=== PATIENT | female | born 1995 | race Hispanic/Latino ===

== ENCOUNTER 2019-02-02 06:56 | Emergency (ER) | payer BC ==
[2019-02-02 07:01] VITALS: BP 136/98; PULSE 72; TEMP 98; O2SAT 98
[2019-02-02 07:25] VITALS: RESP 16
--- NOTE | 2019-02-02 07:36 | ED PDOC ---
HPI: Eye Injury/Pain Additional History Per: Patient Additional Complaint(s): This is 23 y/o F with PMH of seasonal and dog allergy comes to the ER c/o one day hx of right eye allergic reaction, swelling, pain and redness. As per patient this symptoms started last night after her dog licked her medial R eye. Patient took some allergy pill and allergy eye drops last night with some improvement. Patient reports this morning her swelling, redness and pain got better. Reports clear eye discharge yesterday but resolved. Denies any SOB, chest pain, throat itching, dizziness, palpitations, abdominal pain or urinary symptoms. PMH: seasonal and dog allergy PSH: Denies Allg: seasonal and dog allergy Meds: none FH: Denies SH: Social alcohol use, no drug or smoking <Kendal Garcia - Last Filed: 02/02/19 08:14> <Tej Gomez - Last Filed: 02/04/19 07:21> Time Seen by Provider: 02/02/19 07:10 Chief Complaint (Nursing): ENT Problem Supervising Attending Note - Supervising Attending Note The Documented history was done by the: Physician Combination Welder The documented physical exam was done by the: Physician Combination Welder The documented procedures were done by the: Physician Combination Welder - Attestation: I have personally seen and examined this patient.: Yes I have fully participated in the care of the patient.: Yes I have reviewed all pertinent clinical information, including history, physical exam and plan: Yes - Notes: Notes:: itching to eye area after dog licked her eye. <Tej Gomez - Last Filed: 02/04/19 07:21> Past Medical History Vital Signs: Last Vital Signs Temp 98.0 F 02/02/19 06:58 Pulse 72 02/02/19 06:58 Resp 16 02/02/19 06:58 BP 136/98 H 02/02/19 06:58 Pulse Ox 98 02/02/19 06:58 - Family History Family History: States: Unknown Family Hx <Kendal Garcia - Last Filed: 02/02/19 08:14> Vital Signs: Last Vital Signs Temp 98.0 F 02/02/19 06:58 Pulse 72 02/02/19 06:58 Resp 16 02/02/19 06:58 BP 136/98 H 02/02/19 06:58 Pulse Ox 98 02/02/19 08:14 <Tej Gomez - Last Filed: 02/04/19 07:21> - Home Medications Home Medications: Ambulatory Orders Medication Instructions Recorded Polyethylene Glycol 3350 [Miralax] 17 g PO QAM PRN #7 pkg 02/12/16 DiphenhydrAMINE [Benadryl] 25 mg PO TID PRN 5 Days cap 02/02/19 predniSONE [predniSONE Tab] 20 mg PO BID 5 Days tab 02/02/19 - Allergies Allergies/Adverse Reactions: Allergies Allergy/AdvReac Type Severity Reaction Status Date / Time No Known Allergies Allergy Verified 02/12/16 16:13 Review of Systems Constitutional: Negative for: Fever, Chills, Sweats Eyes: Positive for: Pain, Conjunctivae Inflammation, Redness. Negative for: Vision Change ENT: Negative for: Ear Pain, Ear Discharge, Nose Pain, Nose Discharge, Nose Congestion, Mouth Pain, Mouth Swelling, Throat Pain, Throat Swelling Cardiovascular: Negative for: Chest Pain, Palpitations Respiratory: Negative for: Cough, Shortness of Breath, Hemoptysis Gastrointestinal: Negative for: Nausea, Vomiting, Abdominal Pain Musculoskeletal: Negative for: Neck Pain Skin: Negative for: Rash Neurological: Negative for: Weakness, Numbness, Incoordination Psych: Negative for: Anxiety, Depression <Kendal Garcia - Last Filed: 02/02/19 08:14> Physical Exam - Physical Exam Appears: Positive for: No Acute Distress Head Exam: Positive for: ATRAUMATIC, NORMAL INSPECTION, NORMOCEPHALIC Eye Exam: Positive for: EOMI, PERRL, Periorbital swelling (minimum, mild tenderness around medial part or the eye. No discharge), Conjunctival injection (medial R eye ). Negative for: Nystagmus, Scleral icterus ENT: Positive for: Normal ENT Inspection. Negative for: Sinus Pain/Drainage, Nasal Congestion, Tonsillar Swelling Neck: Positive for: Normal Cardiovascular/Chest: Positive for: Regular Rate, Rhythm. Negative for: Chest Non Tender Respiratory: Positive for: Normal Breath Sounds. Negative for: Decreased Breath Sounds, Accessory Muscle Use, Crackles, Stridor, Wheezing Gastrointestinal/Abdominal: Positive for: Normal Exam, Soft. Negative for: Tenderness Back: Positive for: Normal Inspection Extremity: Positive for: Normal ROM. Negative for: Tenderness, Pedal Edema Neurological/Psych: Positive for: Awake, Alert, Normal Tone <Kendal Garcia - Last Filed: 02/02/19 08:14> - Physical Exam ENT: Positive for: Normal ENT Inspection Neck: Positive for: Normal Cardiovascular/Chest: Positive for: Regular Rate, Rhythm <Tej Gomez - Last Filed: 02/04/19 07:21> - ECG O2 Sat by Pulse Oximetry: 98 - Progress ED Course And Treament: A/P: 23 y/o F with PMH of seasonal and dog allergy comes to the ER c/o one day hx of right eye allergic reaction, swelling, pain and redness/ Conjunctivitis. - Visual acuity - Benedryl 25mg STAT - prednisone 60mg STAT Case discussed with Dr. Gomez Patient understands agrees with plan Patient reports feeling better ER precautions discussed with patient in detail <Kendal Garcia - Last Filed: 02/02/19 08:14> - Progress ED Course And Treament: Feels better. AAOx3. Pain free. Tolerated PO. <Tej Gomez - Last Filed: 02/04/19 07:21> Medical Decision Making Medical Decision Making: Right eye Conjunctivitis/ Allergic reaction <Kendal Garcia - Last Filed: 02/02/19 08:14> Disposition - Patient ED Disposition Is Patient to be Admitted: No - Disposition Disposition Time: 08:13 <Kendal Garcia - Last Filed: 02/02/19 08:14> <Tej Gomez - Last Filed: 02/04/19 07:21> - Clinical Impression Clinical Impression: Allergic reaction - Disposition Referrals: [facility] [Outside] - 02/03/19 Condition: STABLE Additional Instructions: Return if not better in 3 days. Prescriptions: DiphenhydrAMINE [Benadryl] 25 mg PO TID PRN 5 Days cap PRN Reason: Itching / Pruritus predniSONE [predniSONE Tab] 20 mg PO BID 5 Days tab Instructions: Skin Rash Forms: [employer] ([place]ian), [facility] ED School/Work Excuse
== END 2019-02-02 08:37 | disposition home or self-care (01) ==
LOC: H.ER 06:56
DX: T78.40XA Allergy, unspecified, initial encounter (principal); H10.9 Unspecified conjunctivitis